=== PATIENT | female | born 1980 | race Caucasian/White ===

== ENCOUNTER 2020-05-27 12:01 | Emergency (ER) | payer OTHER ==
[~2020-05-27] VITALS: Ht 154.9 cm; Wt 74.8 kg
[2020-05-27 12:01] VITALS: BP 120/70
--- NOTE | 2020-05-27 12:01 | NUR ---
Pt taken to bed 4 via w/c.
--- NOTE | 2020-05-27 12:11 | NUR ---
39YO F BIB SELF C/O 5/10 SHARP EPIGASTRIC PAIN RADIATING TO FLANK AREA X 3OMINS. DENIES ANY PROBLEMS URINATING. NO MEDICATIONS TAKEN. ON ASSESSMENT, VSS. ABDOMEN SOFT, NON-TENDER. BS ACTIVE ON ALL QUADRANTS. PT RESTING IN BED WITH BOTH SIDERAILS UP. ERMD MADE AWARE OF PT STATUS. LMP: 2 WEEKS AGO PMH: NONE MEDS: NONE NKA
--- NOTE | 2020-05-27 12:25 | NUR ---
Patient being evaluated by Dr. Jensen at bedside.
[2020-05-27] MEDS ORDERED: DICYCLOMINE HCL LIQUID 20 MG, ALUMINUM HYD/MAG/SIMETHICONE 30 ML, LIDOCAINE VISCOUS 2% ... PO ONE ×3 (12:30)
[2020-05-27] MEDS ORDERED: ONDANSETRON 4 MG ODT PO ONE (12:30)
[2020-05-27] MEDS ORDERED: LIDOCAINE VISCOUS 2% 20 ML UDC ONE (12:31)
[2020-05-27] MEDS ORDERED: DICYCLOMINE HCL LIQUID 10 MG/5 ML UDC ONE (12:32)
[2020-05-27] MEDS ORDERED: ALUMINUM HYD/MAG/SIMETHICONE 30 ML UDC ONE (12:32)
[2020-05-27 12:42] LABS: BASOPHILS % (AUTO) 0.7 % (0.0-2.0); EOSINOPHILS # (AUTO) 0.1 K/uL (0-0.4); EOSINOPHILS % (AUTO) 1.6 % (0.0-4.0); HEMATOCRIT 24.5 % (36-48); HEMOGLOBIN 7.3 g/dL (12.0-16.0); LYMPHOCYTES # (AUTO) 1.5 K/uL (2.5-16.5); LYMPHOCYTES % (AUTO) 26.1 % (20.5-51.1); MEAN CORPUSCULAR HEMOGLOBIN 19 pg (27-31); MEAN CORPUSCULAR HGB CONC 30 g/dL (33-37); MEAN CORPUSCULAR VOLUME 63.9 fL (80-94); MONOCYTES # (AUTO) 0.6 K/uL (0.8-1.0); MONOCYTES % (AUTO) 10.9 % (1.7-9.3); NEUTROPHILS # (AUTO) 3.6 K/uL (1.8-7.7); NEUTROPHILS % (AUTO) 60.7 % (42.2-75.2); PLATELET COUNT (AUTO) 271 K/uL (140-450); RED BLOOD CELL COUNT(AUTO) 3.84 MIL/uL (4.20-5.40); RED CELL DISTRIBUTION WIDTH 19.8 % (11.6-13.7); WHITE BLOOD COUNT (AUTO) 5.9 K/uL (4.8-10.8)
[2020-05-27 13:02] LABS: ALBUMIN 3.2 g/dL (3.4-5.0); ANION GAP 12.4 (8-16); CARBON DIOXIDE 24.3 mmol/L (21-32); CREATININE 0.9 mg/dL (0.6-1.3); POTASSIUM 3.7 mmol/L (3.5-5.1); TOTAL BILIRUBIN 0.3 mg/dL (0.0-1.0)
--- NOTE | 2020-05-27 13:15 | NUR ---
Rectal exam performed by Dr. Jensen with myself at bedside for entire examination. Patient tolerated procedure well. Patient assisted to position of comfort after examination.
[2020-05-27 14:06] VITALS: BP 120/70
--- NOTE | 2020-05-27 14:06 | NUR ---
Patient discharged with v/s stable. Written and verbal after care instructions given and explained. Patient alert, oriented and verbalized understanding of instructions. Ambulatory with steady gait. All questions addressed prior to discharge. ID band removed. Patient advised to follow up with PMD. Rx of PEPCID, NORCO given. Patient educated on indication of medication including possible reaction and side effects. Opportunity to ask questions provided and answered.
== END 2020-05-27 14:06 | disposition home or self-care (01) ==
LOC: MED 12:01
DX: K80.50 Calculus of bile duct without cholangitis or cholecystitis without obstruction (principal)
CPT/HCPCS: 36415; 76705; 80053; 83690; 85025; 99284; Q0162